=== PATIENT | female | born 1990 | race Caucasian/White ===

== ENCOUNTER 2016-11-20 03:19 | Emergency (ER) | payer SELFPAY ==
[~2016-11-20] VITALS: Ht 154.9 cm; Wt 49.9 kg
--- NOTE | 2016-11-20 03:19 | NUR ---
PT TO ER BB RA, PER EMS PT KNOCKED ON RANDOM APARTMENT DOOR AND WHEN RESIDENT OPENED DOOR, PT WALKED INSIDE AND FELL ASLEEP ON COUCH. NO IMMEDIATE SIGNS OF DISTRESS UPON ARRIVAL. PT A/OX2. PT AMBULATORY WITH STEADY GAIT. PT VITAL SIGNS STABLE. NO SIGNS OF TRAUMA NOTED. PT ADMITS TO DRINKING ALCOHOL EARLIER TODAY. WILL CONT TO MONITOR PT.
--- NOTE | 2016-11-20 04:15 | NUR ---
PT RESTING COMFROTABLY IN [facility]. NO SIGNS OF DISTRESS NOTED. PT VITAL SIGNS STABLE. WILL CONT TO MONITOR PT.
--- NOTE | 2016-11-20 05:54 | NUR ---
PT OK TO DISCHARGE PER DR RODRIGUEZ.Patient discharged to home in stable condition. Written and verbal after care instructions given. Patient verbalizes understanding of instruction.Patient is awake and alert to self, day, and place. PT ambulatory with a steady gait
[2016-11-20 06:33] VITALS: BP 108/71
== END 2016-11-20 06:33 | disposition home or self-care (01) ==
LOC: ER 03:20
DX: F10.129 Alcohol abuse with intoxication, unspecified (principal); R41.82 Altered mental status, unspecified; R73.09 Other abnormal glucose
CPT/HCPCS: 82962-TC; A4606; Z7610